=== PATIENT | male | born 1960 | race Caucasian/White ===

== ENCOUNTER 2023-09-21 10:54 | Day surgery (SDC) | payer MEDICAID ==
[~2023-09-21] VITALS: Ht 172.7 cm; Wt 83.2 kg
[~2023-09-21 10:54] MED LIST: MAGN400C2 PO
[2023-09-21] MEDS ORDERED: MIDAZOLAM INJ 2MG/2ML VIAL As Ordered ONE (11:59)
[2023-09-21] MEDS ORDERED: fentaNYL 100 MCG/2 ML INJECTION As Ordered ONE (11:59)
[2023-09-21] MEDS: LR 1,000 ML IV SCH (12:03)
[2023-09-21] MEDS ORDERED: LIDOCAINE 2% 100MG/5ML SDV (FOR ANES.) As Ordered ONE (12:09)
[2023-09-21] MEDS ORDERED: ACETAMINOPHEN 1000MG 100ML IV BAG As Ordered ONE (12:09)
[2023-09-21] MEDS ORDERED: propofoL 200 MG/20 ML VIAL As Ordered ONE (12:09)
[2023-09-21] MEDS ORDERED: dexAMETHasone 10MG/1ML VIAL PRES.FREE As Ordered ONE (12:12)
[2023-09-21] MEDS ORDERED: LIDOCAINE 1% MDV 20ML VIAL As Ordered ONE (12:12)
[2023-09-21] MEDS: dexAMETHasone 10MG/1ML VIAL PRES.FREE PN ONE (12:15)
[2023-09-21] MEDS: LIDOCAINE 1% SDV 5ML VIAL PN ONE (12:15)
[2023-09-21] MEDS: ceFAZolin SOD 2 GM in IV 1 EA IV ONE (12:36)
[2023-09-21] MEDS ORDERED: ONDANSETRON 4MG 2ML VIAL As Ordered ONE (12:44)
[2023-09-21] MEDS ORDERED: KETOROLAC 60MG 2ML VIAL As Ordered ONE (12:44)
[2023-09-21] MEDS: BACITRACIN OINTMENT 30GM TUBE As Ordered ONE (13:47)
[2023-09-21] MEDS ORDERED: PERCOCET PO (14:25)
[2023-09-21] MEDS ORDERED: ONDANSETRON 4MG 2ML VIAL IV PRN (14:50)
[2023-09-21] MEDS: fentaNYL 100 MCG/2 ML INJECTION IV PRN (15:08)
[2023-09-21] MEDS: oxyCODONE 5MG TAB PO PRN (15:34)
[2023-09-21 16:10] VITALS: BP 135/89; TEMP 98; O2SAT 96
== END 2023-09-21 16:25 | disposition home or self-care (01) ==
LOC: M SDC 10:54
PROVIDERS: ATTEND Orthopaedic Surgery Hand Surgery
DX: S52.502A Unspecified fracture of the lower end of left radius, initial encounter for closed fracture (principal); W17.89XA Other fall from one level to another, initial encounter; Y92.89 Other specified places as the place of occurrence of the external cause; Y93.9 Activity, unspecified; Y99.9 Unspecified external cause status; F12.10 Cannabis abuse, uncomplicated; F17.220 Nicotine dependence, chewing tobacco, uncomplicated; D64.9 Anemia, unspecified
CPT/HCPCS: 25609; 76000; C1713; J0131; J0665; J0690; J1100; J1885; J2405; J3010

== ENCOUNTER → 2023-10-04 | Outpatient (CLI) | payer MEDICAID ==
[~2023-10-04] MED LIST changes: +PERCOCET PO
== END ==
LOC: M SOG 07:51
PROVIDERS: ATTEND Physician Assistant
DX: M25.532 Pain in left wrist (principal); S52.572D Other intraarticular fracture of lower end of left radius, subsequent encounter for closed fracture with routine healing

== ENCOUNTER → 2023-11-01 | Outpatient (CLI) | payer MEDICAID | LOC: M SOG 07:53 | PROVIDERS: ATTEND Physician Assistant | DX: M25.532 Pain in left wrist (principal); S52.572D Other intraarticular fracture of lower end of left radius, subsequent encounter for closed fracture with routine healing ==

== ENCOUNTER → 2023-12-16 | Outpatient (CLI) | payer OTHER, MEDICAID | LOC: M SOG 08:06 | PROVIDERS: ATTEND Physician Assistant | DX: M25.532 Pain in left wrist (principal); S52.572D Other intraarticular fracture of lower end of left radius, subsequent encounter for closed fracture with routine healing ==